=== PATIENT | female | born 1960 | race Two or more races ===

== ENCOUNTER 2021-12-25 19:00 | Emergency (ER) | payer OTHER ==
[~2021-12-25] VITALS: Ht 152.4 cm; Wt 61.7 kg
[2021-12-25 19:30] VITALS: BP 141/66
--- NOTE | 2021-12-25 19:33 | NUR ---
to lobby a/w bed ambulatory
[2021-12-25] MEDS ORDERED: TRAM50TA1 PO (20:41)
--- NOTE | 2021-12-25 22:00 | NUR ---
Patient discharged with v/s stable. Written and verbal after care instructions given and explained. Patient alert, oriented and verbalized understanding of instructions. Ambulatory with steady gait. All questions addressed prior to discharge. ID band removed. Patient advised to follow up with PMD. Rx of TRAMADOL HCL given. Patient educated on indication of medication including possible reaction and side effects. Opportunity to ask questions provided and answered.
== END 2021-12-25 22:00 | disposition home or self-care (01) ==
LOC: MED 19:00
DX: S83.91XA Sprain of unspecified site of right knee, initial encounter (principal); S39.012A Strain of muscle, fascia and tendon of lower back, initial encounter; W19.XXXA Unspecified fall, initial encounter; Y93.89 Activity, other specified; Y92.89 Other specified places as the place of occurrence of the external cause; Y99.8 Other external cause status
CPT/HCPCS: 99283